=== PATIENT | male | born 1960 | race Caucasian/White ===

== ENCOUNTER 2018-07-08 07:43 | Day surgery (SDC) | payer MEDICARE, OTHER ==
[2018-07-03 13:48] VITALS: BMI 35.3
[~2018-07-08 07:43] MED LIST: LACTATED RINGERS 1,000 ML IV SCH
[2018-07-08 08:11] VITALS: RESP 16; TEMP 98.2
[2018-07-08 08:13] LABS: Glucose,Whole Blood 110 mg/dL (75-99)
[2018-07-08] MEDS ORDERED: LIDOCAINE 1% INJ 10MG/ML (20 ML MDV) ONE (08:31)
[2018-07-08] MEDS ORDERED: PROPOFOL 10 MG/ML 20 ML VIAL IV ONE (08:31)
[2018-07-08 09:04] VITALS: PULSE 71
--- NOTE | 2018-07-08 09:07 | P.PCN ---
Date of Procedure: 07/08/18 Procedure(s) Performed: Procedure: Colonoscopy and biopsy. Preoperative diagnosis: Screening for neoplasia. Postoperative diagnosis: Diminutive polyps in the sigmoid and rectum biopsied, otherwise, exam to the cecum within normal limits. Preparation: HalfLytely prep. Sedation: Was provided by anesthesia. Brief clinical history: The patient is a 58-year-old male who is scheduled for this evaluation for screening for neoplasia age being his risk factor. There is no family history of colon cancer. He has no abdominal complaints, bleeding or anemia. This would be his first colonoscopy. Procedure: With the patient on his left lateral decubitus position and after informed consent and adequate sedation, the perianal area was inspected and it did not show any fissures or fistulas. There were no masses felt on digital rectal examination. The Olympus CFQ 160L video colonoscope was then inserted in the rectum in the usual fashion and advanced to the cecum. There was a diminutive polyp in the rectum and another one in the distal sigmoid which were biopsied but there were no large polyps or cancer. The mucosa appeared healthy. No polyps or tumors were seen or any obvious diverticular disease or other pathology. I retroflexed the endoscope in the rectum before the endoscope was withdrawn. The patient tolerated the procedure well. Plan: The patient was reassured. He will follow up with you as planned and I recommended repeat exam in 5-10 years depending on the pathology results.
[2018-07-08 09:34] VITALS: BP 146/87
[2018-07-08 09:50] LABS: Glucose,Whole Blood 125 mg/dL (75-99)
== END 2018-07-08 09:49 | disposition home or self-care (01) ==
LOC: ORWHC2ENDO 07:43
DX: Z12.11 Encounter for screening for malignant neoplasm of colon (principal); D12.5 Benign neoplasm of sigmoid colon; K62.1 Rectal polyp; E11.9 Type 2 diabetes mellitus without complications; I10 Essential (primary) hypertension; E78.5 Hyperlipidemia, unspecified; F17.210 Nicotine dependence, cigarettes, uncomplicated; Z79.84 Long term (current) use of oral hypoglycemic drugs; Z79.891 Long term (current) use of opiate analgesic; Z79.899 Other long term (current) drug therapy
CPT/HCPCS: 88305; 45380; J2001; J2704

== ENCOUNTER → 2022-06-05 | Outpatient (CLI) | payer MEDICARE, OTHER ==
--- NOTE | 2022-06-05 08:29 | CTL ---
EXAMINATION TYPE: CT Low Dose Lung DATE OF EXAM ORDERED: 06/05/2022 HISTORY: Z87.891 personal hx . Lung cancer screening CT DLP: [address] CTDI: 2.6 mGy Automated exposure control for dose reduction was used. SCREENING VISIT: First screening visit. COMPARISON: None TECHNIQUE: Low dose computed tomography scan was performed through the chest at 1 mm thick sections a nd reconstructed images in multiple planes at 1 mm and [address] DIAGNOSTIC QUALITY: Satisfactory FINDINGS: LUNG NODULES/PARENCHYMA: Right upper lobe peripheral calcified 4 mm granuloma. No concerning pulmonar y nodules. Scarring and/or atelectasis within the lingula and right middle lobe. LUNGS: COPD: Severity: None Fibrosis: Severity: None Lymph nodes: None Other findings: None RIGHT PLEURAL SPACE: Effusion: None Calcification: None Thickening: None Pneumothorax: None LEFT PLEURAL SPACE: Effusion: None Calcification: None Thickening: None Pneumothorax: None HEART: Heart Size: Normal Coronary Calcification: Minimal Pericardial Effusion: None OTHER FINDINGS: Upper abdomen: Cholelithiasis. Bony thorax: None Supraclavicular region: None Other: None IMPRESSION: No concerning pulmonary nodules. CT LUNG RAD AND CT CHEST RECOMMENDATION: Lung-Rad 1 Negative: Continue annual screening with LDCT in 12 months. S Modifier (other clinically significant findings): None
== END | disposition home or self-care (01) ==
LOC: RADCTMAIN 07:18
PROVIDERS: ATTEND Family Medicine
DX: Z12.2 Encounter for screening for malignant neoplasm of respiratory organs (principal); Z87.891 Personal history of nicotine dependence
CPT/HCPCS: 71271

== ENCOUNTER → 2023-02-12 | Outpatient (CLI) | payer MEDICARE, OTHER ==
--- NOTE | 2023-02-12 12:20 | CA ---
Transthoracic Echo Report Name: Lex Robles Age: 62 Gender: M : 1960 Exam Date: 02/12/2023 08:42 Exam Location: [facility] Ht (in): 67 Wt (lb): 215 Ordering Physician: Eileentanilton, Physician Attending/Referring Phys: Katie Basurto MD [employer] Tia Munoz, CHASIDY Procedure CPT: Indications: R06.09 Cardiac Hx: Technical Quality: Good Contrast 1: Total Dose (mL): Contrast 2: Total Dose (mL): MEASUREMENTS (Male / Female) Normal Values 2D ECHO LV Diastolic Diameter PLAX 4.1 cm 4.2 - 5.9 / 3.9 - 5.3 cm LV Systolic Diameter PLAX 2.6 cm IVS Diastolic Thickness 0.9 cm 0.6 - 1.0 / 0.6 - 0.9 cm LVPW Diastolic Thickness 1.0 cm 0.6 - 1.0 / 0.6 - 0.9 cm LV Relative Wall Thickness 0.5 RV Internal Dim ED PLAX 3.5 cm LA Systolic Diameter LX 3.7 cm 3.0 - 4.0 / 2.7 - 3.8 cm LV Diastolic Volume MOD 4C 100.2 cm??? LV Systolic Volume MOD 4C 41.9 cm??? LV Ejection Fraction MOD 4C 58.1 % LV Cardiac Index MOD 4C 1734.0 cm???/min???m??? LV Diastolic Length 4C 8.9 cm LV Systolic Length 4C 7.1 cm LV Diastolic Volume MOD 2C 98.4 cm??? LV Systolic Volume MOD 2C 47.7 cm??? LV Ejection Fraction MOD 2C 51.5 % LV Cardiac Index MOD 2C 1508.2 cm???/min???m??? LV Diastolic Length 2C 9.1 cm LV Systolic Length 2C 7.1 cm LA Volume 60.1 cm??? 18 - 58 / 22 - 52 cm??? M-MODE Aortic Root Diameter MM 3.4 cm MV E Point Septal Separation 0.3 cm AV Cusp Separation MM 2.2 cm DOPPLER AV Peak Velocity 142.2 cm/s AV Peak Gradient 8.1 mmHg MV Area PHT 3.8 cm??? Mitral E Point Velocity 101.3 cm/s Mitral A Point Velocity 86.5 cm/s Mitral E to A Ratio 1.2 MV Deceleration Time 200.1 ms MV E' Velocity 7.6 cm/s Mitral E to MV E' Ratio 13.2 FINDINGS Left Ventricle Left ventricular ejection fraction is estimated at 55-60 %. Left ventricular cavity size normal.normal left ventricular wall motion. Normal left ventricular diastolic filling pattern. Right Ventricle Mild right ventricular dilatation. Unable to estimate the right ventricular systolic pressure. Right Atrium Normal right atrial size. Left Atrium Mildly increased left atrial volume. Mildly increased left atrial area. Mitral Valve Structurally normal mitral valve. No mitral stenosis, or prolapse. Trace regurgitation Aortic Valve Trileaflet aortic valve. No aortic valve stenosis or regurgitation. Tricuspid Valve Structurally normal tricuspid valve. No tricuspid stenosis, regurgitation or prolapse. Pulmonic Valve Structurally normal pulmonic valve. No pulmonic regurgitation. Pericardium Normal pericardium. No pericardial effusion. Aorta Normal size aortic root and proximal ascending aorta. CONCLUSIONS 1. Normal left ventricle size and systolic function 2. No significant valvular abnormality 3. No pericardial effusion Previewed by: Dr. Zayra Arreguin MD (Electronically Signed) Final Date: 12 February 2023 12:19
== END | disposition home or self-care (01) ==
LOC: RADECHMAIN 08:28
PROVIDERS: ATTEND Student in an Organized Health Care Education/Training Program
DX: R06.09 Other forms of dyspnea (principal)
CPT/HCPCS: 93306